=== PATIENT | female | born 1940 | race Caucasian/White ===

== ENCOUNTER 2024-03-25 10:52 | Emergency (ER) | payer MEDICARE, OTHER, SELFPAY ==
[2024-03-25 10:54] VITALS: BP 149/80
--- NOTE | 2024-03-25 11:00 | ED.GENMED ---
History of Present Illness
General
Chief Complaint: Musculo-Skeletal Complaint
Time Seen by Provider: 03/25/24 11:00
History of Present Illness
History of Present Illness:
TIME OF INITIAL ENCOUNTER: 11 AM
HPI: The patient presents with worsening left knee pain. There is no new trauma. 2 months ago, the patient had a cortisone injection at [facility]. She has known osteoarthritis. The pain was rather severe to the point that she
could not even walk. She came in here for further evaluation. Tylenol has not been helping recently.
EXAM:
GENERAL: Well appearing in no distress
HEENT: Moist oral mucosa
NEUROLOGIC: Excellent strength all extremities, no obvious coordination deficits
PSYCHIATRIC: Appropriate mental status, normal insight and judgement
EXTREMITIES: Very mild diffuse left knee tenderness, no definite palpable popliteal cyst, minimal effusion bilaterally
SKIN: No rash, no lesions
NUMBER AND COMPLEXITY OF PROBLEMS ADDRESSED AT THE ENCOUNTER
� Chronic conditions affecting care: High blood pressure, hyperlipidemia, has had a lobectomy related tuberculosis
� Acute Exacerbation and/or Progression of Chronic Illness: This is an acute on chronic problem
� Differential Diagnosis includes: Progression of osteoarthritis, DVT, Rios's cyst
AMOUNT AND/OR COMPLEXITY OF DATA TO BE REVIEWED AND ANALYZED
� I performed an independent evaluation of and my interpretation is:
EKG:
CT:
X-rays: X-ray of left knee shows mild osteoarthritis
Laboratory Studies:
Other: Ultrasound shows no evidence of DVT or other concern
� Review of other/old records: I reviewed records. The patient had an echo here in 2019
� Clinical information was obtained by an independent historian: I spoke to at bedside
� Prescriptions/Medications Considered but not given:
� Further testing considered but not performed:
RISK OF COMPLICATIONS AND/OR MORBIDITY OR MORTALITY OF PATIENT MANAGEMENT
� Social determinants of health affecting care: Lives at home
� Discussion with other providers:
� Escalation of care including admission/observation vs risk of discharge considered: The patient has rather significant pain worsening with more conservative measures. Patient was started on tramadol. Ultrasound shows no DVT.
Reviewed x-ray.
ANY OTHER UPDATES:
2:40 PM: I reassessed patient. After tramadol was given, she feels improved. She will follow-up with [facility]. She has a cane, crutches, and walker at home.
Phy Exam
Physical Exam
Physical Exam:
See HPI
Course
Orders/Labs/Results
Orders:
Orders
03/25/24 10:53
Knee, Left 4 or More Views [CR Knee - Left 4 Or More View*] Urgent
Comment:
Reason For Exam: pain
03/25/24 11:13
Tramadol HCl [Ultram] 50 mg PO NOW STA
Legs, left US [US Periph Venous LOWER Ext LT] Urgent
Comment:
Reason For Exam: increasing pain behind L knee
Vital Signs
Initial and Last Documented VS:
Initial Vital Signs
Temp Pulse Resp BP Pulse Ox
36.6 C 95 18 149/80 100
03/25/24 10:54 03/25/24 10:54 03/25/24 10:54 03/25/24 10:54 03/25/24 10:54
Last Documented Vital Signs
Temp Pulse Resp BP Pulse Ox
36.6 C 78 16 138/74 98
03/25/24 10:54 03/25/24 14:41 03/25/24 14:41 03/25/24 14:41 03/25/24 14:41
*Critical Care Note
Total Time (30-74mins, 75-104mins- exclusive of procedures): Not Applicable
ED Attending Note
-
Portions of this chart may have been created with voice recognition software.� Occasional wrong word or��sound alike� substitutions may have occurred due to the inherent limitations of voice recognition software.
Discharge Plan
Departure
Patient Disposition: Home (Routine Discharge)
Date of Disposition: 03/25/24
Time of Disposition: 14:42
Patient with high blood pressure during this ER visit?: Yes
Discharge Problem:
Knee pain
Prescriptions:
New
tramadol 50 mg tablet
50 mg PO BID PRN (Reason: Pain) Qty: 14 0RF
No Action
atorvastatin 10 MG tablet
10 mg PO QPM
naproxen sodium [Aleve] 220 MG tablet
440 mg PO Q12H PRN (Reason: pain)
hydrochlorothiazide 12.5 MG capsule
12.5 mg PO DAILY
Ca carb-D3-mag dp-cri-tcnm-Zn [Caltrate-D3 Plus Minerals] 1 EACH tablet
600 mg PO BID
sennosides [senna] 1 TABLET tablet
2 tab PO BID Qty: 0 0RF
acetaminophen 325 MG tablet
650 mg PO Q4HWA Qty: 0 0RF
polyethylene glycol 3350 17 GRAMS powder in packet
17 grams PO DAILY Qty: 0 0RF
famotidine 20 MG tablet
20 mg PO HS Qty: 30 0RF
aspirin 325 MG tablet,delayed release (DR/EC)
325 mg PO DAILY Qty: 0 0RF
docusate sodium 100 MG capsule
100 mg PO BID Qty: 0 0RF
oxycodone 5 MG tablet
5 mg PO Q4HPRN PRN (Reason: moderate/severe pain) Qty: 60 0RF
Referrals:
Lindsay Webb MD [Family Provider] -
Activity Restrictions/Additional Instructions:
I sent a prescription for tramadol to your pharmacy. If you take this, consider taking something like MiraLAX Doberman constipation. Ultrasound shows no sign of blood clot. I see no sign of cyst behind the knee. I also reviewed the x-ray which
shows some degree of osteoarthritis. Follow-up with your orthopedist.
Interventions
Interventions:
*Risk Screen - Suicide Last Done: 03/25/24 10:54
*General Assessment Last Done: 03/25/24 10:54
*Neglect/Abuse Screening Last Done: 03/25/24 10:54
ED- Fall Risk Assessment Last Done: 03/25/24 12:08
*ED COVID-19 Vaccine History Last Done: 03/25/24 14:41
ED-Musculoskeletal Assessment Last Done: 03/25/24 11:35
Discharge Date and Time
Print Language: SWAZI
[2024-03-25] MEDS: ULTRAM 50 MG PO (11:21)
[2024-03-25 14:41] VITALS: BP 138/74
[2024-03-25 16:01] VITALS: BP 138/77
== END 2024-03-25 16:06 | disposition home or self-care (01) ==
LOC: EMR 10:52
PROVIDERS: EMERGENCY PHYSICIAN Emergency Medicine; FAMILY PHYSICIAN Family Medicine
DX: M25.562 Pain in left knee (principal)
CPT/HCPCS: 99284; 73564; 93971

== ENCOUNTER → 2024-03-29 11:36 | Outpatient (REF) | payer MEDICARE, OTHER, SELFPAY ==
[2024-03-29 12:30] LABS: Body Fluid Mononuclear 70.4 %; Body Fluid Polymorphonuclear 29.6 %; Body Fluid WBC 267 /CUMM
[2024-03-29 12:31] LABS: Body Fluid Second Tech EM
== END ==
LOC: REG 11:36
PROVIDERS: ATTENDING PHYSICIAN Physician Assistant Surgical; FAMILY PHYSICIAN Family Medicine
DX: M25.462 Effusion, left knee (principal)
CPT/HCPCS: 89051; 89060

== ENCOUNTER → 2024-04-09 13:24 | Outpatient (REF) | payer MEDICARE, OTHER, SELFPAY | LOC: PAVMRI 13:24 | PROVIDERS: ATTENDING PHYSICIAN Physician Assistant Surgical; FAMILY PHYSICIAN Nurse Practitioner Family | DX: M25.462 Effusion, left knee (principal) | CPT/HCPCS: 73721 ==

== ENCOUNTER 2024-07-12 06:35 | Inpatient (IN) | payer MEDICARE, OTHER, SELFPAY ==
[2024-06-16 11:07] LABS: Hematocrit 36.5 % (37.0-47.0); Hemoglobin 11.3 g/dL (12.0-16.0); Mean Corpuscular Hgb 28.8 pg (27.0-31.0); Mean Corpuscular Volume 92.9 fL (81.0-99.0); Mean Platelet Volume 9.3 fL (7.4-10.4); Platelet Count 262 10^3/uL (130-400); Red Blood Cell Count 3.93 10^6/uL (4.20-5.40); Red Cell Dist. Width 13.8 % (11.5-14.5); White Blood Cell Count 9.3 10^3/uL (4.8-10.8)
[2024-06-16 11:19] LABS: ALT (SGPT) 14 U/L (0-35); AST (SGOT) 20 U/L (14-36); Albumin 4.7 g/dl (3.5-5.0); Alkaline Phosphatase 67 U/L (38-126); Blood Urea Nitrogen 39 mg/dl (7-17); Calcium 10.2 mg/dl (8.4-10.2); Carbon Dioxide 24 mmol/L (22-30); Chloride 109 mmol/L (98-107); Glucose 94 mg/dl (70-99); Potassium 4.7 mmol/L (3.5-5.1); Sodium 146 mmol/L (135-145); Total Bilirubin 0.5 mg/dl (0.2-1.3); Total Protein 7.1 g/dl (6.3-8.2); eGFR 36.64
[2024-06-16 11:47] LABS: Reticulocyte Count 1.8 % (0.4-2.8)
[2024-06-16 12:12] LABS: Glycohemoglobin (HgbA1c) 5.8 % (4.0-5.6)
[2024-06-16 12:43] LABS: Iron 64 ug/dl (37-170)
[2024-06-16 12:53] LABS: Percent Saturation 22 % (20-50); Total Iron Binding Capacity 287 ug/dl (265-497)
[2024-06-16 14:03] LABS: Folate 5.8 ng/ml (2.76-20); Vitamin B12 264 pg/ml (239-931)
[2024-06-16 14:06] VITALS: BMI 27.3
[2024-06-21 08:49] VITALS: BMI 27.3
[2024-07-12] VITALS (18 sets, daily range): BP systolic 110–155; BP diastolic 46–92; PULSE 77; O2SAT 97
[2024-07-12] MEDS: MOBIC 15 MG PO (07:39)
[2024-07-12] MEDS: TYLENOL 650 MG PO ×4 (07:39→20:18)
[2024-07-12] MEDS: NORMOSOL-R/PLASMALYTE-A 1000 IV ×2 (07:47→10:05)
--- NOTE | 2024-07-12 08:07 | W.PN.UPDATE ---
Update Note
Progress Note Update
L TKA 07/12/24
DVT ppx-ASA
-Home care PT/OT/VN
Ambulatory dysfunction at baseline-fall precautions-Ultram in lieu of Oxy given age
--- NOTE | 2024-07-12 08:31 | W.DS.TRANS ---
DC Summary - [employer]
-
Discharge Instructions:
Sleep Apnea Risk Low
Discharge Diagnosis/Procedures L TKA 07/12/24
Diet As tolerated
Activity With assistance,With Walker
Additional Activity Adequate hydration, minimize Oxy and wear TEDs
stockings to prevent low blood pressure/
dizziness
Driving Restrictions No driving
Bathing Restrictions OK to Shower
Other Services PT
Instructions:
Stand-Alone Forms: Total Hip/Knee Replacement D/C
Changes to Home Medications: Yes
Discharge Medications:
DC Medications w/original date entered in [employer]
atorvastatin 10 mg tablet 10 mg PO QPM 04/18/15
calcium 300 mg-D3 20 mcg-magnesium 25 mg-coppr 0.5 qy-nedh-umvr tablet (Caltrate-D3 Plus Minerals) 600 mg PO BID 04/18/15
amlodipine 2.5 mg tablet 2.5 mg PO DAILY 06/15/24
mupirocin 2 % topical ointment 1 applic intranasal BID #1 tube 06/16/24
acetaminophen 325 mg tablet 650 mg (2 x 325 mg) PO QID #0 tabs 07/12/24
aspirin 325 mg tablet 325 mg PO DAILY blood clot prevention #1 tab 07/12/24
benazepril 20 mg tablet 20 mg PO HS #0 tabs 07/12/24
chlorthalidone 25 mg tablet 25 mg PO DAILY #0 tabs 07/12/24
dexamethasone 4 mg tablet 4 mg PO BID inflammation #6 tabs 07/12/24
docusate sodium 100 mg capsule (Colace) 100 mg PO BID stool softner #1 cap 07/12/24
gabapentin 300 mg capsule 300 mg PO HS sleep/pain #10 caps 07/12/24
magnesium hydroxide 400 mg/5 mL oral suspension (Milk of Magnesia) 30 ml PO HS PRN constipation #1 mL 07/12/24
ondansetron 4 mg disintegrating tablet 4 mg PO Q6H PRN n/v #20 tabs 07/12/24
sennosides 8.6 mg tablet (Senokot) 17.2 mg (2 x 8.6 mg) PO BID laxative #2 tabs 07/12/24
tramadol 50 mg tablet 50 mg PO Q6H PRN moderate-severe pain #30 tabs 07/12/24
Home Medication Changes
acetaminophen 325 mg tablet 650 mg (2 x 325 mg) PO QID #0 tabs 07/12/24
aspirin 325 mg tablet 325 mg PO DAILY blood clot prevention #1 tab 07/12/24
benazepril 20 mg tablet 20 mg PO HS #0 tabs 07/12/24
chlorthalidone 25 mg tablet 25 mg PO DAILY #0 tabs 07/12/24
dexamethasone 4 mg tablet 4 mg PO BID inflammation #6 tabs 07/12/24
docusate sodium 100 mg capsule (Colace) 100 mg PO BID stool softner #1 cap 07/12/24
gabapentin 300 mg capsule 300 mg PO HS sleep/pain #10 caps 07/12/24
magnesium hydroxide 400 mg/5 mL oral suspension (Milk of Magnesia) 30 ml PO HS PRN constipation #1 mL 07/12/24
ondansetron 4 mg disintegrating tablet 4 mg PO Q6H PRN n/v #20 tabs 07/12/24
sennosides 8.6 mg tablet (Senokot) 17.2 mg (2 x 8.6 mg) PO BID laxative #2 tabs 07/12/24
tramadol 50 mg tablet 50 mg PO Q6H PRN moderate-severe pain #30 tabs 07/12/24
Pending Results: No
[2024-07-12] MEDS: ULTRAM 50 MG PO ×3 (10:08→20:31)
[2024-07-12] MEDS: DILAUDID 0.5 MG IV ×2 (12:34→16:48)
[2024-07-12] MEDS: NORVASC PO (12:40)
--- NOTE | 2024-07-12 16:14 | PTCARENOTE ---
Pt arrived to 2S from PACU. AAOx3. VSS. Current pain management reviewed and pt verbalized understanding. Primaseal dressing intact with small drainage. LLE pink, warm, cap refill < 2 seconds, fair movement, no tense edema, dp pulse weak on
palpation. IVF infusing as ordered. Spouse at bedside, bed in lowest position, call tidwell within reach.
[2024-07-12] MEDS: ANCEF 5 IV ×2 (16:48→22:07)
[2024-07-12] MEDS: ASPIRIN 325 MG PO (18:34)
[2024-07-12] MEDS: LIPITOR 10 MG PO (18:34)
[2024-07-12] MEDS: BACTROBAN 2% OINTMENT 1 APPLIC NASAL (20:18)
[2024-07-12] MEDS: DECADRON 4 MG IV (20:18)
[2024-07-12] MEDS: COLACE PO (20:34)
[2024-07-12] MEDS: SENOKOT PO (20:34)
[2024-07-12] MEDS: NEURONTIN 300 MG PO (22:07)
[2024-07-12] MEDS: ZESTRIL 10 MG PO (22:07)
[2024-07-13] MEDS: TYLENOL PO (00:33)
[2024-07-13] MEDS: TYLENOL 650 MG PO ×3 (02:50→12:25)
[2024-07-13] MEDS: ULTRAM 50 MG PO ×2 (02:52→12:24)
[2024-07-13 03:29] VITALS: BP 159/80
[2024-07-13 07:35] VITALS: BP 145/73
[2024-07-13] MEDS: DECADRON 4 MG IV (08:16)
[2024-07-13] MEDS: SENOKOT 17.2 MG PO (08:16)
[2024-07-13] MEDS: ASPIRIN 325 MG PO (08:17)
[2024-07-13] MEDS: COLACE 100 MG PO (08:17)
[2024-07-13] MEDS: NORVASC 2.5 MG PO (08:17)
[2024-07-13] MEDS: BACTROBAN 2% OINTMENT NASAL (08:19)
[2024-07-13 09:54] VITALS: BP 141/79; PULSE 83; O2SAT 98
--- NOTE | 2024-07-13 10:02 | CM ---
Cm reviewed medical records. Cm met with patient and in room. Patient confirmed demographics. Patient lives independently with . Patient has a history of VN with shari, but is currently not on service. Patent has has a stay at
[facility] for [facility]. Patient is active with her PCP. Patient uses [facility] in [email or web address] for medication services.
Patient has an appointment to [facility] on 07/14.
PLAN: home with outpatient PT
[2024-07-13 11:00] VITALS: BP 153/87
--- NOTE | 2024-07-13 11:20 | W.PN.ORTHO ---
Today's Communication / Plan
-
d/c
Assessment
.
Distal Motor Intact: Yes
Dressing:
Clean, dry and intact.
Assessment:
Ambulatory dysfunction at baseline-fall precautions-Ultram in lieu of Oxy given age
*Prevention of post-op complications re orthostasis and constipation/ileus --discussed and outlined in d/c instructions: TEDs stockings, minimizing opioid, adequate hydration and adhering to bowel regimen*
�
Plan
.
Surgery / Date: L TKA 07/12/24
DVT Prophylaxis: Aspirin
Activity:
Out of bed.
PT/OT
Discharge Plan: Home w/ Outpatient PT
Subjective
.
.:
Patient resting comfortably.
Vital Signs and Labs
.
Vital Signs and Labs:
Lab Results
06/16/24 10:39
06/16/24 10:39
Temp Pulse Resp BP Pulse Ox
97.4 F 86 16 145/73 96
07/13/24 07:35 07/13/24 08:17 07/13/24 07:35 07/13/24 08:17 07/13/24 07:35
Non-invasive Hgb result: 12.4
Physical Exam
-
HEENT: No pallor, cyanosis, or jaundice. Throat clear.
NECK: Supple. No JVD.
RESPIRATORY: Lungs clear to auscultation.
CVS: S1, S2 normal. RRR.� No murmur, rub or gallop.
ABDOMEN: Soft, non-tender. No distension. BS+/normal.
EXTREMITIES: strength equal, no calf pain with palpation
[employer]: AOx3. No focal deficits. basting cleaner grossly intact
[2024-07-13 12:36] VITALS: BP 165/80; PULSE 81; O2SAT 99
[2024-07-13 12:47] LABS: Glucose - Point of Care 167 mg/dl (70-99)
== END 2024-07-13 14:26 | disposition home or self-care (01) | DRG 470 ==
LOC: 2 SOUTH 06:35
PROVIDERS: ADMITTING PHYSICIAN Orthopaedic Surgery; FAMILY PHYSICIAN Family Medicine; REFERRING PHYSICIAN Internal Medicine Interventional Cardiology
PROC: 0SRD069 Replacement of Left Knee Joint with Oxidized Zirconium on Polyethylene Synthetic Substitute, Cemented, Open Approach (ICD-10-PCS; 2024-07-12)
DX: M17.12 Unilateral primary osteoarthritis, left knee (principal)
CPT/HCPCS: 36415; 73560; 80053; 82607; 82728; 82746; 82962; 83036; 83540; 83550; 85027; 85045; 86850; 86900; 86901; 87070; 97110; 97116; 97162; 97167; 97530; C1713; C1776

== ENCOUNTER 2024-07-31 11:09 | Emergency (ER) | payer MEDICARE, OTHER, SELFPAY ==
[2024-07-31 11:17] VITALS: BP 149/81
--- NOTE | 2024-07-31 12:05 | ED.GENMED ---
History of Present Illness
General
Chief Complaint: Swelling
Time Seen by Provider: 07/31/24 12:04
History of Present Illness
History of Present Illness:
TIME OF INITIAL ENCOUNTER: 12:05 PM
HPI: Patient had left knee replacement surgery 07/12 and presents due to ongoing, not improving, left lower extremity swelling. She was sent here for further evaluation by her physical therapist who spoke to Ortho to evaluate for DVT. Her physical
therapist suggested that she use compression stockings to both lower extremities. She denies any shortness of breath.
EXAM:
GENERAL: Well appearing in no distress
HEENT: Moist oral mucosa
CARDIOVASCULAR: No murmurs, normal heart rate, regular rhythm, No chest wall tenderness
PULMONARY: No respiratory distress, breath sounds are clear and equal
ABDOMEN: Soft with no peritoneal signs, no tenderness
NEUROLOGIC: Good strength all extremities, no coordination deficits
PSYCHIATRIC: Appropriate mental status, normal insight and judgement
EXTREMITIES: Left greater than right lower extremity edema/lymphedema. Surgical wound noted to the anterior aspect of the left knee with no evidence of infection, decreased active range of motion into flexion at the left knee consistent with recent
operative intervention.
SKIN: No rash, no lesions
NUMBER AND COMPLEXITY OF PROBLEMS ADDRESSED AT THE ENCOUNTER
� Chronic conditions affecting care: Left total knee arthroplasty 2024
� Acute Exacerbation and/or Progression of Chronic Illness: This is an acute problem
� Differential Diagnosis includes: Postoperative swelling, DVT, lymphedema, no evidence for infection on physical examination
AMOUNT AND/OR COMPLEXITY OF DATA TO BE REVIEWED AND ANALYZED
� I performed an independent evaluation of and my interpretation is:
EKG:
CT:
X-rays:
Laboratory Studies:
Other: Ultrasound imaging shows no evidence of DVT
� Review of other/old records: The patient had left TKA due to left knee osteoarthritis with Dr. Berger 07/12/2024
� Clinical information was obtained by an independent historian: None needed
� Prescriptions/Medications Considered but not given:
� Further testing considered but not performed:
RISK OF COMPLICATIONS AND/OR MORBIDITY OR MORTALITY OF PATIENT MANAGEMENT
� Social determinants of health affecting care: Lives at home
� Discussion with other providers:
� Escalation of care including admission/observation vs risk of discharge considered: The patient presents with ongoing swelling 3 weeks after surgery. No evidence of DVT. To follow-up with Ortho as outpatient.
ANY OTHER UPDATES:
Phy Exam
Physical Exam
Physical Exam:
See HPI
Scores
Heart Failure Risk
Heart Failure Risk Score: Not Applicable
Course
Orders/Labs/Results
Orders:
Orders
07/31/24 11:21
Legs, left US [US Periph Venous LOWER Ext LT] Urgent
Comment:
Reason For Exam: post-op swelling and pain
Vital Signs
Initial and Last Documented VS:
Initial Vital Signs
Temp Pulse Resp BP Pulse Ox
36.6 C 63 16 149/81 96
07/31/24 11:17 07/31/24 11:17 07/31/24 11:17 07/31/24 11:17 07/31/24 11:17
Last Documented Vital Signs
Temp Pulse Resp BP Pulse Ox
36.6 C 63 16 149/81 96
07/31/24 11:17 07/31/24 11:17 07/31/24 11:17 07/31/24 11:17 07/31/24 11:17
*Critical Care Note
Total Time (30-74mins, 75-104mins- exclusive of procedures): Not Applicable
ED Attending Note
-
Portions of this chart may have been created with voice recognition software.� Occasional wrong word or��sound alike� substitutions may have occurred due to the inherent limitations of voice recognition software.
Discharge Plan
Departure
Patient Disposition: Home (Routine Discharge)
Date of Disposition: 07/31/24
Time of Disposition: 14:33
Patient with high blood pressure during this ER visit?: Yes
Discharge Problem:
Postoperative edema
Instructions: Dependent Edema (DC), BLOOD PRESSURE
Prescriptions:
No Action
atorvastatin 10 MG tablet
10 mg PO QPM
Caltrate-D3 Plus Minerals 1 EACH tablet
600 mg PO BID
amlodipine 2.5 mg tablet
2.5 mg PO DAILY
mupirocin 2 % ointment
1 applic intranasal BID Qty: 1 0RF
Patient Comments:
pt started this 3 days ago- last dose was this am.
aspirin 325 mg tablet
325 mg PO DAILY Qty: 1 0RF
Rx Instructions:
Take with food
docusate sodium [Colace] 100 mg capsule
100 mg PO BID Qty: 1 0RF
magnesium hydroxide [Milk of Magnesia] 400 mg/5 mL suspension
30 ml PO HS PRN (Reason: constipation) Qty: 1 0RF
Rx Instructions:
Take colace and senokot as advised--if no bowel movement 1 day after surgery -add milk of mag
dexamethasone 4 mg tablet
4 mg PO BID Qty: 6 0RF
Rx Instructions:
take with food
post-op use only
gabapentin 300 mg capsule
300 mg PO HS Qty: 10 0RF
Rx Instructions:
*POST-OP USE ONLY
ondansetron 4 mg tablet,disintegrating
4 mg PO Q6H PRN (Reason: n/v) Qty: 20 0RF
Rx Instructions:
take 1/2h b/f pain med if recurrent nausea
allow to dissolve in mouth w/o water
sennosides [Senokot] 8.6 mg tablet
17.2 mg PO BID Qty: 2 0RF
tramadol 50 mg tablet
50 mg PO Q6H PRN (Reason: moderate-severe pain) Qty: 30 0RF
Rx Instructions:
ongoing therapy
acetaminophen 325 MG tablet
650 mg PO QID Qty: 0 0RF
chlorthalidone 25 mg tablet
25 mg PO DAILY Qty: 0 0RF
Rx Instructions:
HOLD SYSTOLIC BLOOD PRESSURE <135
benazepril 20 mg tablet
20 mg PO HS Qty: 0 0RF
Rx Instructions:
HOLD SYSTOLIC BLOOD PRESSURE <130
Referrals:
Lindsay Webb MD [Family Provider, Family Practice]
Activity Restrictions/Additional Instructions:
The ultrasound of the leg shows no sign of blood clot. Follow-up with Dr. Berger. Return here if worse or other concerns. Try to keep the leg elevated is much as possible.
Interventions
Interventions:
*Risk Screen - Suicide Last Done: 07/31/24 11:20
*General Assessment Last Done: 07/31/24 13:00
*Neglect/Abuse Screening Last Done: 07/31/24 11:20
ED- Cardiac Assessment Last Done: 07/31/24 13:00
ED- Pulmonary Assessment Last Done: 07/31/24 13:00
ED-Skin Assessment Last Done: 07/31/24 13:00
Discharge Date and Time
Print Language: MICRONESIAN
[2024-07-31 13:00] VITALS: BP 138/77
== END 2024-07-31 17:00 | disposition home or self-care (01) ==
LOC: EMR 11:09
PROVIDERS: EMERGENCY PHYSICIAN Emergency Medicine; FAMILY PHYSICIAN Family Medicine
DX: R60.0 Localized edema (principal); M79.605 Pain in left leg; M96.89 Other intraoperative and postprocedural complications and disorders of the musculoskeletal system; R03.0 Elevated blood-pressure reading, without diagnosis of hypertension; M17.12 Unilateral primary osteoarthritis, left knee; Z96.652 Presence of left artificial knee joint; Z79.82 Long term (current) use of aspirin; Z88.0 Allergy status to penicillin; Z88.2 Allergy status to sulfonamides; Z91.048 Other nonmedicinal substance allergy status
CPT/HCPCS: 99284; 93971